=== PATIENT | female | born 1995 | race Caucasian/White ===

== ENCOUNTER 2019-01-19 18:30 | Emergency (ER) | payer OTHER ==
[~2019-01-19] VITALS: Ht 162.6 cm; Wt 86.2 kg
[2019-01-19 19:58] LABS: URINE BLOOD NEGATIVE (Negative); URINE CLARITY CLEAR; URINE COLOR YELLOW; URINE GLUCOSE-RANDOM* NEGATIVE (Negative); URINE KETONES TRACE (Negative); URINE PROTEIN (DIPSTICK) 2+ (Negative); URINE SPECIFIC GRAVITY >= 1.030 (1.005-1.035)
[2019-01-19 20:12] LABS: ICTOTEST (BILI CONFIRMATORY) Negative (Negative); URINE BILIRUBIN NEGATIVE (Negative); URINE LEUKOCYTES-REFLEX 1+ (Negative); URINE NITRITE-REFLEX POSITIVE (Negative)
[2019-01-19 20:18] LABS: URINE UROBILINOGEN 0.2 E.U./dl (0.2-1.0)
[2019-01-19 20:21] LABS: BACTERIA-REFLEX None Seen /HPF (None Seen); CASTS None Seen /LPF (None Seen); CRYSTALS None Seen /LPF (None Seen); SQUAMOUS 0-3 Few /LPF (0-3); URINE RBC >20 Many /HPF (0-2); URINE WBC-REFLEX >25 Many /HPF (0-5); WBC CLUMPS Few (None Seen)
[2019-01-19] MEDS ORDERED: KEFLEX500 M1 PO (20:26)
[2019-01-19 21:20] VITALS: BP 133/74
== END 2019-01-19 21:20 | disposition home or self-care (01) ==
LOC: ER 18:30
PROVIDERS: Physician Assistant
DX: O23.42 Unspecified infection of urinary tract in pregnancy, second trimester (principal); Z3A.16 16 weeks gestation of pregnancy

== ENCOUNTER 2021-06-09 20:41 | Emergency (ER) | payer OTHER ==
[~2021-06-09] VITALS: Ht 162.6 cm; Wt 81.7 kg
[~2021-06-09 20:41] MED LIST: KEFLEX500 M1 PO
[2021-06-09] MEDS ORDERED: NOHOMEMEDICATIONS (20:51)
[2021-06-09] MEDS ORDERED: NORCO5 PO (22:05)
[2021-06-09 22:17] VITALS: BP 120/72
== END 2021-06-09 22:17 | disposition home or self-care (01) ==
LOC: ER 20:41
DX: M25.461 Effusion, right knee (principal)